=== PATIENT | male | born 2000 | race Caucasian/White ===

== ENCOUNTER 2022-04-29 02:08 | Outpatient (CLI) | payer MEDICAID | END 2022-04-29 02:09 | disposition critical access hospital (66) | LOC: EMS 02:08 | DX: R58 Hemorrhage, not elsewhere classified (principal) | CPT/HCPCS: A0425; A0429; A0999 ==

== ENCOUNTER 2022-04-29 05:24 | Outpatient (CLI) | payer MEDICAID | END 2022-04-29 05:25 | disposition short-term general hospital (02) | LOC: EMS 05:24 | PROVIDERS: ATTEND Emergency Medicine | DX: R58 Hemorrhage, not elsewhere classified (principal); Z98.890 Other specified postprocedural states | CPT/HCPCS: A0425; A0428; A0999 ==